=== PATIENT | male | born 1995 | race Caucasian/White ===

== ENCOUNTER 2017-07-12 16:35 | Emergency (ER) | payer BC ==
[~2017-07-12] VITALS: Ht 190.5 cm; Wt 69.0 kg
[2017-07-12 16:51] VITALS: Ht 190.5 cm; Wt 69.0 kg
[2017-07-12 22:14] VITALS: BP 125/79; PULSE 88; TEMP 36.9; O2SAT 97
--- NOTE | 2017-07-13 03:29 | EMERGENCY ROOM VISIT NOTE ---
History First contact with patient: 16:40 Chief Complaint: ALCOHOL OVERDOSE Stated Complaint: ETOH History of Present Illness The patient is a 22 year old male who presents to the Emergency Room via ambulance for evaluation of an alcohol intoxication. EMS was called after police found the patient passed out in a ditch. According to EMS, he was easily arousable. He had no friends with him. The patient reports that he is not a [employer] student. The patient otherwise reports that he will not talk to me because of all of the people (security) that is in the room. The patient will not quantify amount of alcohol consumption. He denies any illicit drug use. The patient currently denies any other pain or recent illness. He denies any significant medical history. Review of Systems Review of systems was limited secondary to alcohol intoxication Past Medical/Surgical History Medical Problems: (1) No significant past medical history Surgical Problems: (1) No history of previous surgery Family History Patient denies any significant family history Social History Smoking Status: Current Some Day Smoker Alcohol Use: occasionally Drug Use: none Marital Status: single Current/Historical Medications No Active Prescriptions or Reported Meds Physical Exam Vital Signs Date Time Temp Pulse Resp B/P (MAP) Pulse Ox O2 Delivery O2 Flow Rate FiO2 07/12/17 22:14 36.9 88 15 125/79 97 Room Air 07/12/17 20:49 62 18 110/55 96 07/12/17 19:17 66 20 124/78 96 Room Air 07/12/17 17:02 92 07/12/17 17:00 Room Air 07/12/17 16:51 36.4 77 14 127/84 98 Room Air Physical Exam CONSTITUTIONAL: Healthy and well nourished. GCS 15. The patient is crying. HEENT: Normocephalic, atraumatic. Pupils equal, round and reactive. No epistaxis or hemotympanum. NECK: Full active range of motion without discomfort. RESPIRATORY: Clear to auscultation bilaterally with no wheezing, crackles, rhonchi or stridor. CARDIOVASCULAR: Regular rate and rhythm with no murmurs, rubs or gallops. GASTROINTESTINAL: Bowel sounds present in all quadrants. Soft and nontender to palpation. MUSCULOSKELETAL: Full range of motion of all joints without discomfort. INTEGUMENTARY: No rash or other significant dermatologic conditions noted. NEUROLOGIC: No focal neurologic deficits noted. Medical Decision & Procedures Laboratory Results Test 07/12/17 17:03 Ethyl Alcohol mg/dL 222.8 mg/dl (0-3) ED Course Patient history and physical exam were performed. Nurse's notes were reviewed. Vital signs were reviewed and were normal. The patient is communicative, but refuses to talk because of everyone that is in the room. IV access was established, and blood alcohol level was drawn, and was 228. The patient was placed on monitor and in prone position. The patient was speaking with his mother once I returned to discuss his alcohol levels. When I returned to discuss further discharge planning, I advised the patient that he would need someone responsible and sober to come pick him up, otherwise he would have to wait longer until I felt comfortable for discharge via taxi or other transportation on his own. The patient was able to arrange a ride. He also was very apologetic and reported that he was totally embarrassed with what happened tonight. The patient was instructed to rest and remain well-hydrated, avoiding any alcohol in the near term. He was encouraged to drink responsibly in the future. Follow-up with family doctor as needed for further management. The patient voiced understanding of all discharge instructions, and was discharged with his girlfriend accepting responsibility. Medical Decision Head Trauma GCS Score: 15 Blood Pressure Screening Patient's blood pressure: Normal blood pressure Impression Primary Impression: Alcohol overdose Departure Information Prescriptions No Active Prescriptions or Reported Meds Referrals No Doctor, Assigned (PCP) Patient Instructions My [facility] Problem Qualifiers Primary Impression: Alcohol overdose Encounter type: initial encounter Injury intent: accidental or unintentional Qualified Codes: T51.91XA - Toxic effect of unspecified alcohol , accidental (unintentional), initial encounter
== END 2017-07-12 22:36 | disposition home or self-care (01) ==
LOC: C.EDA 16:40 → C.ED 22:36
DX: T51.91XA Toxic effect of unspecified alcohol, accidental (unintentional), initial encounter (principal); F17.200 Nicotine dependence, unspecified, uncomplicated